=== PATIENT | male | born 1995 | race African-American/Black ===

== ENCOUNTER 2020-11-17 11:11 | Emergency (ER) | payer OTHER ==
[2020-11-17 11:24] VITALS: BP 113/72; PULSE 63; RESP 18; TEMP 98.3
[2020-11-17] MEDS ORDERED: DEXAMETHASONE SOD PHOSPHATE 10 MG/ML 1 ML VIAL IM STA (12:07)
--- NOTE | 2020-11-17 12:12 | ED ---
General Adult HPI - General Chief complaint: ENT Stated complaint: Sore Throat Time Seen by Provider: 11/17/20 11:53 Source: patient, RN notes reviewed Mode of arrival: ambulatory Limitations: no limitations - History of Present Illness Initial comments: Patient is a pleasant 25-year-old male presenting to the emergency department with sore throat. Onset of symptoms was 3-4 days ago. No fevers. Patient is starting have some mild discomfort of his right ear that started today. No cough. Discomfort does increase with swallowing. No dyspnea. Patient is tolerating oral intake. - Related Data Previous Rx's Medication Instructions Recorded Amoxicillin 500 mg PO Q8H #30 capsule 11/17/20 Allergies Allergy/AdvReac Type Severity Reaction Status Date / Time No Known Allergies Allergy Verified 11/17/20 11:23 Review of Systems ROS Statement: Those systems with pertinent positive or pertinent negative responses have been documented in the HPI. ROS Other: All systems not noted in ROS Statement are negative. Constitutional: Denies: fever Eyes: Denies: eye pain ENT: Reports: ear pain, throat pain Respiratory: Denies: cough, dyspnea Cardiovascular: Denies: chest pain Endocrine: Denies: fatigue Gastrointestinal: Denies: abdominal pain Genitourinary: Denies: dysuria Skin: Denies: rash Neurological: Denies: weakness Past Medical History Past Medical History: No Reported History History of Any Multi-Drug Resistant Organisms: None Reported Past Surgical History: No Surgical Hx Reported Past Psychological History: No Psychological Hx Reported Smoking Status: Current every day smoker Past Alcohol Use History: None Reported Past Drug Use History: None Reported General Exam Limitations: no limitations General appearance: alert, in no apparent distress Head exam: Present: normocephalic Eye exam: Present: normal appearance, PERRL ENT exam: Present: TM's normal bilaterally, other (Mild pharyngeal erythema. Some increased tonsillar swelling on the right without peritonsillar abscess. No uvular shift. No trismus. Normal voice.) Neck exam: Present: tenderness (Mild right-sided), lymphadenopathy Respiratory exam: Present: normal lung sounds bilaterally Cardiovascular Exam: Present: regular rate, normal rhythm GI/Abdominal exam: Present: soft. Absent: tenderness Neurological exam: Present: alert Psychiatric exam: Present: normal affect, normal mood Skin exam: Present: normal color Course Vital Signs 11/17/20 11:20 Temperature 98.3 F Pulse Rate 63 Respiratory 18 Rate Blood Pressure 113/72 O2 Sat by Pulse 98 Oximetry Disposition Clinical Impression: Pharyngitis Disposition: HOME SELF-CARE Condition: Stable Instructions (If sedation given, give patient instructions): Pharyngitis (ED) Additional Instructions: Start antibiotics today. Continue salt water gargle. [id number] Motrin as needed. Return for not tolerating oral intake or liquids, difficulty breathing, worsening symptoms or other concerns. Prescriptions: Amoxicillin 500 mg PO Q8H #30 capsule Is patient prescribed a controlled substance at d/c from ED?: No Referrals: Glenn Gordon MD [STAFF PHYSICIAN] - 1-2 days Time of Disposition: 12:10
== END 2020-11-17 12:25 | disposition home or self-care (01) ==
LOC: EC 11:11
DX: J02.9 Acute pharyngitis, unspecified (principal); F17.200 Nicotine dependence, unspecified, uncomplicated
CPT/HCPCS: 96372; 99282; J1100